=== PATIENT | female | born 1950 | race Caucasian/White ===

== ENCOUNTER 2017-04-11 12:47 | Emergency (ER) | payer MEDICARE, OTHER ==
[~2017-04-11] VITALS: Ht 162.6 cm; Wt 67.4 kg
[~2017-04-11 12:47] MED LIST: OYST500T77; TAB-TAB; TRAM50 PO
[2017-04-11 12:49] VITALS: BP 135/80; PULSE 86; RESP 15; TEMP 98; O2SAT 96
--- NOTE | 2017-04-11 13:55 | PD ---
HPI Chief Complaint: Laceration/Skin Injury Time Seen by Provider: 13:20 Travel History International Travel<30 days: No Contact w/Intl Traveler<30days: No Traveled to known affect area: No History of Present Illness HPI 66-year-old female with chief complaint of right sided jaw pain status post fall yesterday. Patient reports while walking at the [employer] in [place] she tripped on some uneven pavement falling forward causing her chin to strike the pavement. She reports immediate pain in the right mandible which has been constant since the fall. There was no loss of consciousness. She denies neck pain, headache, nausea vomiting. She reports the pain is worse with opening and closing of the jaw. No alleviating factors. Symptoms severity moderate. PFSH Past Medical History Medical History: Denies Significant Hx Diminished Hearing: No Tetanus Vaccination: Unknown Influenza Vaccination: No ?: Not Tubal Ligation: Yes (1975) Past Surgical History Abdominal Surgery: Yes (EXP LAP) Eye Surgery: Yes (lasik both eyes - 1999) Other Surgery: Yes (exploratory - ) Social History Alcohol Use: Yes (wine - daily) Tobacco Use: No (QUIT 1991) Substance Use: No Allergies-Medications (Allergen,Severity, Reaction): Coded Allergies: Ibuprofen (Verified Allergy, Severe, STATES IS NOT ALLERGIC, 04/11/17) Reported Meds & Prescriptions Reported Meds & Active Scripts Active Ultram (Tramadol HCl) 50 Mg Tab 50 Mg PO Q6H PRN Review of Systems Except as stated in HPI: all other systems reviewed are Neg General / Constitutional: No: Fever Eyes: No: Visual changes HENT: No: Headaches Cardiovascular: No: Chest Pain or Discomfort Respiratory: No: Shortness of Breath Gastrointestinal: No: Abdominal Pain Genitourinary: No: Dysuria Skin: No Rash Neurologic: No: Weakness Physical Exam Narrative GENERAL: Well-nourished, well-developed patient. SKIN: Focused skin assessment warm/dry. Multiple small abrasions to the right hand dorsal aspect. Small superficial abrasion to the chin. HEAD: Normocephalic. Patient has acute point tenderness and mild swelling over the right TMJ and mandible. No malocclusion. No oral injuries. EYES: No scleral icterus. No injection or drainage. EOMs intact. NECK: Supple, trachea midline. No JVD or lymphadenopathy. No cervical midline tenderness. Full painless range of motion. CARDIOVASCULAR: Regular rate and rhythm without murmurs, gallops, or rubs. RESPIRATORY: Breath sounds equal bilaterally. No accessory muscle use. GASTROINTESTINAL: Abdomen soft, non-tender, nondistended. MUSCULOSKELETAL: No cyanosis, or edema. NEUROLOGICAL: Awake and alert. No obvious cranial nerve deficits. Motor grossly within normal limits. Normal speech. 5 out of 5 strength in extremities. BACK: Nontender without obvious deformity. No CVA tenderness. GENERAL: [-] SKIN: Focused skin assessment warm/dry. HEAD: Atraumatic. Normocephalic. EYES: Pupils equal and round. No scleral icterus. No injection or drainage. ENT: No nasal bleeding or discharge. Mucous membranes pink and moist. NECK: Trachea midline. No JVD. CARDIOVASCULAR: Regular rate and rhythm. No murmur appreciated. RESPIRATORY: No accessory muscle use. Clear to auscultation. Breath sounds equal bilaterally. GASTROINTESTINAL: Abdomen soft, non-tender, nondistended. Hepatic and splenic margins not palpable. MUSCULOSKELETAL: No obvious deformities. No clubbing. No cyanosis. No edema. Data Data Last Documented VS Vital Signs Date Time Temp Pulse Resp B/P Pulse Ox O2 Delivery O2 Flow Rate FiO2 04/11/17 12:49 98.0 86 15 135/[address] Facial Bones W/O Iv Cont (04/11/17 ) [facility] Medical Decision Making Medical Screen Exam Complete: Yes Emergency Medical Condition: Yes Differential Diagnosis Mandible fracture, facial contusion, abrasions Narrative Course 66-year-old female with chief complaint of right jaw pain status post mechanical fall yesterday. Patient denies head injury or loss of consciousness. Patient is not anticoagulated. She denies neck pain. She reports pain in the right jaw primarily located the TMJ joint. She has pain with opening and closing the jaw. No malocclusion. No dental injuries. CT scan of facial bones reveal a nondisplaced fracture of the right mandible. Diagnostic studies discussed with patient and family she was instructed to make a follow-up an appointment with FS DR Kan on Thursday morning. She was instructed to eat soft foods. Pain medication will be prescribed. Return precautions discussed. Patient verbalizes understanding and agrees to plan. Diagnosis Primary Impression: Fracture, mandible Qualified Code: S02.609A - Closed fracture of right side of mandible, unspecified mandibular site, initial encounter Additional Impression: Abrasion Referrals: Glenn Kan DMD Additional Instructions: Take the pain medication as prescribed. Stay well hydrated by drinking plenty of fluids. Eat soft foods. Make an appointment for follow-up with Dr. Kan. Return to the emergency department if he developed new or worsening symptoms. Scripts Tramadol (Ultram)50 Mg Tab50 Mg PO Q6H PRN (PAIN) #15 TAB Ref 0 Prov:Zelda Leonard 04/11/17 Disposition: 01 DISCHARGE HOME Condition: Stable Zelda Leonard Apr 11, 2017 13:55
--- NOTE | 2017-04-11 14:54 | RADRPT ---
EXAM DATE/TIME: 04/11/2017 13:55 [place] COMPARISON: No previous studies available for comparison. INDICATIONS : Injury from fall, pain right mandible. RADIATION DOSE: 29.85 CTDIvol (mGy) MEDICAL HISTORY : None SURGICAL HISTORY : None. ENCOUNTER: Initial ACUITY: 2 days PAIN SCORE: 6/10 LOCATION: Right chin. TECHNIQUE: Volumetric scanning of the facial bones was performed. Using automated exposure control and adjustme nt of the mA and/or kV according to patient size, radiation dose was kept as low as reasonably achiev able to obtain optimal diagnostic quality images. DICOM format image data is available electronicall y for review and comparison. FINDINGS: There is a nondisplaced fracture of the right mandible and the rest of the bony structures are intact . CONCLUSION: Right mandibular fracture. Jared Valadez MD on April 11, 2017 at 14:50 Board Certified Radiologist. This report was verified electronically.
[2017-04-11] MEDS ORDERED: ULTR50TA5 PO ×2 (15:17→15:18)
== END 2017-04-11 15:25 | disposition home or self-care (01) ==
LOC: PHEFT 12:47
DX: S02.609A Fracture of mandible, unspecified, initial encounter for closed fracture (principal); W01.0XXA Fall on same level from slipping, tripping and stumbling without subsequent striking against object, initial encounter; Y93.01 Activity, walking, marching and hiking; Y92.89 Other specified places as the place of occurrence of the external cause
CPT/HCPCS: 70486

== ENCOUNTER 2017-04-29 14:25 | Observation (INO) | payer MEDICARE, OTHER ==
--- NOTE | 2017-04-27 11:16 | MH ---
cc: CRISTHIAN KAN DMD DATE OF ADMISSION: 04/28/2017 DATE OF 1950 HISTORY OF PRESENT ILLNESS This is a 66-year-old female who was walking at the [facility], tripped on uneven pavement and hit her face and chin on April 10, 2017. She was then directed to follow up in my office from [place]. At that time she had a nondisplaced right subcondylar fracture and a Greenstick left subcondylar fracture which was also nondisplaced. She was put on a liquid diet and she was told to take precautions such as not eating anything hard, no full mouth opening, no strenuous activity or anything like that. She came to follow up with me on April 16, 2017, and she has an open bite at this point. The bite is not in occlusion. She then reports to me that she had a full mouth yawning twice six days ago and now the bite is off. So in order to restore proper form and function, it is necessary that she undergo post-reduction of the bilateral subcondylar fracture, specifically the right side which is more displaced now secondary to the yawning. Benefits, risks and indication of the procedure, the procedure in detail and the options of no treatment including alternatives were discussed with this patient. The risks are not limited any postop pain, infection, bleeding, damage to the adjacent soft tissue, hard tissue anesthesia complications, malunion, nonunion of the fracture sites, further surgeries as required, dental corrections as required, all questions and concerns were addressed. PAST MEDICAL HISTORY History of biphosphonate use. MEDICATIONS Denied. PAST SURGICAL HISTORY 1. Bunionectomy. 2. Laparoscopy. ALLERGIES Denied. GROWTH AND DEVELOPMENT Normal. INFECTIOUS DISEASE Denied. AUTOIMMUNE DISORDER Denied. ANESTHESIA PROBLEMS Denied. FAMILY HISTORY Mother and father . Brother age 72 with history of heart disease. OCCUPATIONAL HISTORY She is retired, living with her , . Denies any tobacco. A glass of wine daily. Sleeping good. REVIEW OF SYSTEMS CONSTITUTIONAL: Weight 135 pounds, height 5 feet, 4 inches. Reports some weight loss secondary to liquid diet. HEAD: Denies any headaches, any dizziness or any seizures. Reports some injury secondary trauma on April 10, 2017. EYES: Denies any visual problems. Denies any double vision, any tearing or blind spots. History of LASIK surgery in 1999. NOSE: Denies any bleeding, any obstruction or discharges. MOUTH: Dental difficulties. She has broken teeth from trauma. Gingival bleeding. No chills, bleeding, no dentures. Not able to close her mouth. THROAT: Denies any hoarseness, soreness any thyroid disease. LYMPH NODES: Denies any local glandular enlargement. RESPIRATORY: Denies any TB, shortness of breath, any cough. Denies any asthma, COPD, sleep apnea. CARDIOVASCULAR: Denies any pericardial pain, any hypo or hypertension, any murmurs. Denies any shortness of breath on excursion, any edema or phlebitis. Denies rheumatic fever, any structural heart surgeries. GASTROINTESTINAL: Denies any gallbladder, IBS or any peptic ulcer disease. GENITOURINARY: Denies any UTI or any kidney disease. MUSCULOSKELETAL: Report some pain on the jaw on the right side. Denies there is some limitation of movement as she is only able to open 20-mm. There is some muscular weakness. ENDOCRINE: Denies any diabetes mellitus, any hormone therapy, any growth disturbances. HEMATOLOGICAL: Denies any anemia, any bleeding tendency, any Rh incompatibility. NEUROLOGICAL: Denies any sensory or motor disturbances. MENSTRUAL: Menopausal. Two pregnancies, two children. PHYSICAL EXAMINATION VITAL SIGNS: Pulse is 74, blood pressure is 145/72, oxygen saturations at 92%. ASA status is 2. GENERAL: Alert, awake and oriented x 3, in no acute distress. HEAD: Normocephalic. No tenderness to palpation on the head. EYES: Pupils are equal, round reactive to light and accommodation. Extraocular movements intact. NOSE: Airway is patent. MOUTH: Oral bite is not in occlusion. He has got an anterior open bite. She is opening only of up to 20 mm now. Previously when I had seen her approximately two weeks ago she was able to 40 mm with her bite was completely in occlusion. Now it is not. She has got stable dentition generalized. Tissues are pink and well-perfused. No signs of any infection or any bleeding or any pus. There is some tenderness noted to palpation on the right subcondylar region. The condyles appear to be stable at this point. However, to the limitation of opening secondary to pain, not fully able to his evaluate for joint noises. NECK: Positive range of movement. No tenderness noted. CARDIOVASCULAR: Regular rate and rhythm. RESPIRATORY: Clear to auscultation bilaterally. ABDOMEN: Nontender, nondistended, soft. GI: Positive bowel sounds. EXTREMITIES: The range of movement in upper extremities and lower extremities. NEUROLOGICAL: Cranial through II through XII grossly intact. IMAGING STUDIES CT scan from [place] shows a right subcondylar fracture nondisplaced. Our own office cone beam CT shows a right originally nondisplaced right subcondylar fracture and a Greenstick fracture in the left subcondylar region. Now on April 24, 2017, shows a nondisplaced fracture on the right that has become displaced, now accounting for the open bite and the malocclusion. IMPRESSION AND PLAN This is a 66-year-old female status post fall, hitting her chin with bilateral subcondylar fractures, the right side now is displaced and left-sided nondisplaced Greenstick. Plan is for closed reduction of the bilateral subcondylar fractures secondary to noncompliance. The benefits, risks and indication of the procedure, procedure in detail and the options of no treatment were discussed with the patient and her . Risks are not limited to any postop pain, infection, bleeding, damage to the adjacent soft tissue, hard tissue, anesthesia complications, malunion, nonunion of the fracture sites, further surgeries, dental corrections as required. All questions and concerns were addressed. Cristhian Kan DMD RRT/PRISCILLA /10:19 AM /10:45 AM
[~2017-04-29] VITALS: Ht 162.6 cm; Wt 61.8 kg
[~2017-04-29 14:25] MED LIST changes: +KETOROLAC TROMETHAMINE 60 MG/2 ML (IM) VIAL IM ONE; +LACTATED RINGER'S 1000 ML INJ 1,000 ML IV ONE; +NEOSTIGMINE 3 MG/3 ML SYR IV ONE; +ONDANSETRON HCL 4 MG/2 ML VIAL IV PUSH ONE; -OYST500T77; +PROPOFOL 200 MG/20 ML AMP IV ONE; -TAB-TAB; -TRAM50 PO; +ULTR50TA5 PO
[2017-04-29 14:54] VITALS: BP 150/74; PULSE 88; RESP 20; TEMP 97.5; O2SAT 99
[2017-04-29] MEDS ORDERED: CHLORHEXIDINE GLUCONATE 0.12% 15 ML CUP ONE (15:53)
[2017-04-29] MEDS ORDERED: LIDOCAINE 2%/EPINEPHrine PF 1:200,000 20ML SDV ONE (15:54)
[2017-04-29] MEDS ORDERED: BACITRACIN TOP OINT 15 GM TUBE ONE (15:54)
[2017-04-29] MEDS ORDERED: LACTATED RINGER'S 1000 ML IV PRN (16:00)
[2017-04-29] MEDS ORDERED: INSULIN HUMAN REGULAR 1,000 UNITS/10 ML VIAL SQ PRN (16:00)
[2017-04-29] MEDS ORDERED: METOPROLOL TARTRATE 25 MG TAB PO PRN (16:00)
[2017-04-29] MEDS ORDERED: POVIDONE IODINE 5% (ANTISEPSIS KIT) 4 APPLICATIONS EACH NARE PRN (16:00)
[2017-04-29] MEDS ORDERED: SODIUM CHLORID 0.9% 500 ML IV PRN (16:00)
[2017-04-29] MEDS ORDERED: CHLORHEXIDINE GLUCONATE 2 % 1 PACK (2 CLOTHS) TOPICAL PRN (16:00)
[2017-04-29] MEDS ORDERED: SODIUM CHLORIDE 0.9% INJ 100 ML ONE (16:13)
[2017-04-29] MEDS ORDERED: ceFAZolin INJ 1,000 MG VIAL ONE (16:13)
[2017-04-29] MEDS ORDERED: DEXAMETHASONE SOD PHOS 4 MG/ML VIAL ONE (16:25)
[2017-04-29] MEDS ORDERED: FAMOTIDINE 20 MG/2 ML VIAL ONE (16:25)
--- NOTE | 2017-04-29 18:05 | HHI.PR ---
Immediate Post Op Note Procedure Date: Apr 29, 2017 Pre Op Diagnosis: bilateral subcondylar fractures Post Op Diagnosis: becky Surgeon: Glenn Kan Glass Furnace Tender(s): tre malagon Procedure: closed reduction bilateral subcondylar fractures Complications: none Estimated blood loss: minimal Anesthesia: General, Local (2%lidocaine with 1:200,000 epi approx 5 cc) Drains: None Patient to: PACU Date/Time of Procedure: SEE SURGICAL CARE RECORD Glenn Kan DMD Apr 29, 2017 18:05
[2017-04-29] MEDS ORDERED: *morphine SULFATE 8 MG/ML PERIprocedure ONLY ONE (18:21)
[2017-04-29] MEDS ORDERED: MIDAZOLAM HCL 2 MG/2 ML VIAL ONE (18:23)
[2017-04-29] MEDS ORDERED: fentaNYL CITRATE 250 MCG/5 ML AMP ONE (18:23)
[2017-04-29] MEDS ORDERED: DO NOT ADM ANY ANTICOAGULANT DRUGS PRN (18:30)
[2017-04-29] MEDS: SODIUM CHLOR 0.9% 1000 ML INJ 1,000 ML IV SCH (18:30)
[2017-04-29] MEDS ORDERED: SODIUM CHLORIDE FLUSH PRN IV FLUSH (18:45)
[2017-04-29] MEDS ORDERED: ONDANSETRON HCL 4 MG/2 ML VIAL IV PUSH PRN (18:45)
[2017-04-29] MEDS ORDERED: MORPHINE SULFATE 4 MG/ML INJ IV PRN (18:45)
[2017-04-29 20:35] VITALS: BP 140/67; PULSE 78; RESP 18; TEMP 96.5; O2SAT 98
[2017-04-29] MEDS: SODIUM CHLORIDE FLUSH BID IV FLUSH SCH (23:26)
[2017-04-29] MEDS: ceFAZolin 1,000 MG/NS 100 ML IV SCH ×2 (23:26)
[2017-04-29] MEDS: ACETAMINOPHEN 325MG/HYDROcodone 7.5MG/15ML UDC PO PRN (23:27)
[2017-04-30 00:25] VITALS: BP 105/51; PULSE 76; RESP 17; TEMP 97; O2SAT 97
[2017-04-30 04:25] VITALS: BP 125/62; PULSE 78; RESP 16; TEMP 96.5; O2SAT 99
[2017-04-30] MEDS: SODIUM CHLOR 0.9% 1000 ML INJ 1,000 ML IV SCH (04:30)
--- NOTE | 2017-04-30 07:42 | HHI.PR ---
Subjective Remarks pod 1 s/p closed reduction of bilateral subcondylar fracturs pt seen and examined AAOx3, Nad ambulating, voiding, tolerating po reports some intraoral wires irritating her cheek/lip Objective Vital Signs Date Time Temp Pulse Resp B/P Pulse Ox O2 Delivery O2 Flow Rate FiO2 04/30/17 06:17 Nasal Cannula 2.00 04/30/17 04:25 96.5 78 16 125/62 99 04/30/17 00:25 97.0 76 17 105/51 97 04/29/17 20:35 96.5 78 18 140/67 98 04/29/17 18:45 72 13 144/63 99 Nasal Cannula 2 04/29/17 18:30 70 13 148/60 99 Nasal Cannula 2 04/29/17 18:15 71 18 163/72 99 Nasal Cannula 2 04/29/17 18:00 97.7 74 12 182/84 100 Nasal Cannula 4 04/29/17 14:54 97.5 88 20 150/74 99 I/O 04/29/17 04/29/17 04/29/17 04/30/17 04/30/17 04/30/17 07:00 15:00 23:00 07:00 15:00 23:00 Intake Total 1100 ml 240 ml Output Total 0 ml Balance 1100 ml 240 ml Intake Oral 240 ml Other 1100 ml Output Urine Total 0 ml Estimated Blood Loss 0 ml # Voids 1 2 # Bowel Movements 0 Objective Remarks no gross facial edema intraorally - bite is in occlusion arch bars and wires in position tissues pink and well perfused wire twisting machine operator at head of bed on wall Assessment and Plan Assessment and Plan pod 1 s/p closed reduction of bilateral subcondylar fractures placed wax to arch bar/wires- more comfortable ok to d/c to home full liquid diet no strenuous activity/exercises f/up dr kan 1 week [phone] send pt with wire cutters, wire twisting machine operator with pt at all times for emergency airway management pt has rx pain meds at home - can use otc liquid Tylenol/Motrin prn pain Glenn Kan DMD Apr 30, 2017 07:42
[2017-04-30 08:00] VITALS: BP 143/54; PULSE 62; RESP 18; TEMP 95.6; O2SAT 100
--- NOTE | 2017-04-30 08:03 | MP ---
cc: JORGECRISTHIAN DMD DATE OF PROCEDURE April 29, 2017 PREOPERATIVE DIAGNOSIS Bilateral subcondylar fractures. POSTOPERATIVE DIAGNOSIS Bilateral subcondylar fractures. PROCEDURE Closed reduction of the bilateral subcondylar fractures. ANESTHESIA General, also 2% lidocaine with 1:200,000 epinephrine, approximately [address] Kan STEEL SAMPLER Matt Castaneda. COMPLICATIONS None. ESTIMATED BLOOD LOSS Minimal. DISPOSITION The patient tolerated the procedure well, extubated and taken to the PACU. INDICATIONS FOR PROCEDURE This is a 66-year-old female who tripped and fell and hit her chin on April 10, 2017. This resulted in a greenstick fracture on the left subcondylar region and a nondisplaced fracture to a minimally displaced fracture in the right subcondylar region, very minimal. She was placed on a full liquid diet. At that time in my office when she followed up her bite was in occlusion, she opened to 40 mm without any problem. She came back to follow up two weeks later and unfortunately the patient yawned against my advise twice 6 days prior to that and that resulted in her having her bite being off, not in occlusion. She was having some discomfort. For now, in order to restore the proper form and function, it is necessary the patient undergo the above-listed procedure. The benefits, risks indication of the procedure, procedure in detail and the options of no treatment including alternatives were discussed with this patient. The risks were not limited any postop pain, infection, bleeding, damage to the adjacent teeth or crowns, soft tissue, hard tissue, anesthesia complications, malunion, nonunion of the fracture sites, malocclusion, further dental corrections, further surgical intervention as required. All questions and concerns were addressed. Consent is signed in the chart. PROCEDURE IN DETAIL The patient was met perioperatively. Past medical history was reviewed and updated; no changes noted. All questions and concerns were addressed. The patient was taken to operating room #7 and placed on the table in supine position. She underwent nasal intubation with the GlideScope. Eyes were taped shut. All pressure points were padded. The head was wrapped in the tube was secured in the standard OMS fashion. At this time a time-out was taken to identify the patient, the site of the procedure and surgeon. All were in agreement. Prior to this I went to the sink to scrub and came back to wear the sterile attire. The patient was draped in normal sterile fashion.. The patient was already prepped with Betadine solution. Bite block was placed gently on the left side of the mouth. The back of throat was suctioned. The moistened Ray-Haris was used as a throat pack. On examination under anesthesia, the bite block was taken out and I was able to gently guide the bite into occlusion. She has a lot of crowns and worn teeth. Her left maxillary premolar and mandibular left premolar has a crack and is broken in half; this looks old. She has some periodontal issues going on with the lateral crowns and especially on the maxillary anterior bridge. Bite block is placed in the mouth. Arch bars were placed in the maxillary and mandibular regions from the molar region on the maxilla and the premolar on the mandible, secured into position using 24-gauge wires. The mouth was thoroughly irrigated with saline and Peridex. The back of the throat was suctioned. The Ray-Haris was now removed. Bite block was removed. The Ray-Haris was the throat pack. The throat pack was removed. Bite was placed into occlusion using intermaxillary 24 gauge wires. Good cusp to fossa relationship. Bite is in good occlusion. The patient tolerated the procedure well. No complication noted. Extubated and taken to the PACU. All sponge needle counts were accounted for. Cristhian Kan DMD FINAL INSPECTOR MOVEMENT ASSEMBLY/SSB /6:00 PM /7:47 AM
[2017-04-30] MEDS: ceFAZolin 1,000 MG/NS 100 ML IV SCH ×2 (08:51)
[2017-04-30] MEDS: ACETAMINOPHEN 325MG/HYDROcodone 7.5MG/15ML UDC PO PRN (08:52)
[2017-04-30] MEDS: SODIUM CHLORIDE FLUSH BID IV FLUSH SCH (09:00)
== END 2017-04-30 10:53 | disposition home or self-care (01) ==
LOC: HSDC 14:25 → N06A 19:50
PROVIDERS: ADMIT Dentist Oral and Maxillofacial Surgery; ATTEND Dentist Oral and Maxillofacial Surgery
PROC: 0NS Head and Facial Bones, Reposition (ICD-10-PCS; principal; 2017-04-29 16:38)
DX: S02.622A Fracture of subcondylar process of left mandible, initial encounter for closed fracture (principal); S02.621A Fracture of subcondylar process of right mandible, initial encounter for closed fracture; Z91.19 Patient's noncompliance with other medical treatment and regimen; W18.30XA Fall on same level, unspecified, initial encounter
CPT/HCPCS: 00190; 21450; G0378; J0690; J1100; J1885; J2250; J2270; J2405; J2710; J3010; J7030; J7120